=== PATIENT | male | born 1990 | race African-American/Black ===

== ENCOUNTER 2021-10-17 13:35 | Emergency (ER) | payer OTHER ==
[~2021-10-17] VITALS: Ht 185.4 cm; Wt 90.7 kg
[2021-10-17] MEDS ORDERED: CLEOCIN HCL150 M1 PO (16:05)
[2021-10-17] MEDS ORDERED: ERYTHROMYCIN E3.5 G3 OPHTHALMIC (16:05)
[2021-10-17] MEDS ORDERED: CLEOCIN HCL300 MG PO (16:05)
[2021-10-17 16:55] VITALS: BP 120/68
== END 2021-10-17 16:56 | disposition home or self-care (01) ==
LOC: ER 13:35
DX: H10.31 Unspecified acute conjunctivitis, right eye (principal); H11.421 Conjunctival edema, right eye; F12.90 Cannabis use, unspecified, uncomplicated